=== PATIENT | female | born 1960 | race Caucasian/White ===

== ENCOUNTER 2018-06-25 14:54 | Outpatient (CLI) | payer OTHER | END 2018-06-25 14:55 | disposition home or self-care (01) | LOC: BICMAMMO 14:54 | PROVIDERS: ATTEND Obstetrics & Gynecology | DX: Z12.31 Encounter for screening mammogram for malignant neoplasm of breast (principal); R92.1 Mammographic calcification found on diagnostic imaging of breast | CPT/HCPCS: 77063; 77067 ==

== ENCOUNTER 2018-06-27 13:27 | Outpatient (CLI) | payer OTHER ==
--- NOTE | 2018-06-27 14:55 | ULT ---
LEFT BREAST ULTRASOUND: Comparison: Mammogram 06-27-18, 06-25-18, 04-17-17 History: Mass seen in the central aspect of the left breast which persists with additional imaging. Technique: Multiplanar grayscale and color doppler images were obtained in a targeted ultrasound of t he left breast. FINDINGS: In the central left breast there is a hypoechoic lobulated/spiculated mass measuring 1.[address]. This corresponds to the mammographic abnormality. This mass is difficult to see as it i s beneath the nipple but can be best seen from the 9 o'clock position. IMPRESSION: BIRADS category 4 - suspicious abnormality. Ultrasound guided biopsy of the left breast mass is recom mended. This was discussed with the patient at time of ultrasound. The nurse navigator, Rula Mcmanus, will coordinate with the patient and Dr. Johnson to schedule a biopsy of this mass. POS: [facility]
== END 2018-06-27 13:28 | disposition home or self-care (01) ==
LOC: BICMAMMO 13:27
PROVIDERS: ATTEND Obstetrics & Gynecology
DX: R92.8 Other abnormal and inconclusive findings on diagnostic imaging of breast (principal); N63.24 Unspecified lump in the left breast, lower inner quadrant
CPT/HCPCS: G0279

== ENCOUNTER 2018-07-04 08:05 | Outpatient (CLI) | payer OTHER ==
--- NOTE | 2018-07-04 11:55 | MRI ---
MRI RIGHT HIP WITHOUT CONTRAST: INDICATIONS: Chronic right hip pain. COMPARISON: None. FINDINGS: There is mild tendinosis of the right gluteus minimus tendon with mild subgluteus minimus trochanteri c bursitis. No muscular atrophy is evident. The rectus femoris and hamstring origins appear within normal limits. No iliopsoas bursitis is evident. No acute fracture is noted. No paralabral cyst is demonstrated. No free fluid or lymphadenopathy is evident within the pelvis. IMPRESSION: 1. Mild tendinosis of the right gluteus minimus with mild trochanteric bursitis. 2. No acute fracture demonstrated. 3. No large paralabral cysts to suggest the presence of an underlying labral tear. No joint effusio n demonstrated. 4. No muscular atrophy is evident. 5. No acute fracture is demonstrated. POS: [facility]
--- NOTE | 2018-07-04 12:21 | MRI ---
MRI LUMBAR SPINE WITHOUT CONTRAST: Date: 07/04/18 HISTORY: Right-sided sciatica. Chronic right hip pain. Low back pain with radiation to right leg. COMPARISON: None. TECHNIQUE: MRI lumbar spine is performed without intravenous Gadolinium administration. Multisequential, multipl meg imaging is performed. FINDINGS: Appropriate T1 marrow signal intensity of the lumbar vertebra. Vertebral body height is maintained. N o fracture. No significant STIR hyperintensity to suggest vertebral body edema or ligamentous injury. Symmetric signal intensity of the psoas muscles. Appropriate signal intensity of the solid organs. Co nus medullaris terminates at the upper aspect of L1. T12-L1: Adequate disc hydration. No significant central canal stenosis or foraminal narrowing. L1-L2: Adequate disc hydration. No significant central canal stenosis. Neural foramina are patent. L2-L3: Adequate disc hydration. No significant central canal stenosis. Neural foramina are patent. L3-L4: Adequate disc hydration. No significant central canal stenosis. Neural foramina are patent. T here is mild facet hypertrophy and ligamentum flavum thickening. L4-L5: Desiccation with mild loss of disc space height. There is a central disc protrusion with associated T 2 and STIR hyperintensity suggesting a small annular fissure. No significant stenosis upon the thecal sac. Annular fissure abuts, but does not obscure the traversing left L5 nerve root. Minimal bilatera l foraminal narrowing. There is mild facet hypertrophy and ligamentum flavum thickening. L5-S1: Adequate disc hydration. No significant central canal stenosis. Foramina are patent. IMPRESSION: 1. Annular fissure at L4-L5. There is associated minimal disc protrusion without significant stenosi s upon the thecal sac. The annular tear is adjacent to the traversing right L5 nerve root. POS: [facility]
== END 2018-07-04 08:06 | disposition home or self-care (01) ==
LOC: BICMRI 08:05
PROVIDERS: ATTEND Orthopaedic Surgery
DX: M54.32 Sciatica, left side (principal); M25.551 Pain in right hip; G89.29 Other chronic pain; M51.26 Other intervertebral disc displacement, lumbar region; M51.36 Other intervertebral disc degeneration, lumbar region; M70.61 Trochanteric bursitis, right hip
CPT/HCPCS: 72148

== ENCOUNTER → 2018-07-06 | Day surgery (SDC) | payer OTHER ==
--- NOTE | 2018-07-06 14:44 | ULT ---
ULTRASOUND GUIDED LEFT BREAST BIOPSY: Date: 07/06/18 HISTORY: Left breast mass. COMPARISON: None. FINDINGS: Successful left breast biopsy with ultrasound guidance. A total of four 14 gauge core biopsy samples were obtained and placed directly in Formalin. Post biopsy clip was placed and a postprocedure mammog marielle was performed which shows the clip adjacent to the lesion. TECHNIQUE: Consent obtained to perform an ultrasound guided biopsy of a left breast mass. Mass was identified an d the skin was prepped and draped in the sterile fashion. Under ultrasound guidance, four biopsies we re performed using a 14 gauge needle. Samples were placed directly in Formalin. A biopsy clip was khadijah bobby. The patient tolerated the procedure well. No immediate or postprocedure complications. Postprocedure mammogram was performed. IMPRESSION: Successful left breast ultrasound guided biopsy. Final pathologic diagnosis pending. Clip position ap propriate, just adjacent to the lesion. POS: [facility]
== END ==
LOC: BICULT 12:34
PROVIDERS: ATTEND Obstetrics & Gynecology
PROC: 0HBU3ZX Excision of Left Breast, Percutaneous Approach, Diagnostic (ICD-10-PCS; principal; 2018-07-06)
DX: C50.812 Malignant neoplasm of overlapping sites of left female breast (principal)
CPT/HCPCS: 19083; 88305

== ENCOUNTER 2018-11-21 09:46 | Outpatient (CLI) | payer OTHER ==
--- NOTE | 2018-11-21 11:48 | BD ---
DEXA BONE DENSITY EXAM: HISTORY: A 58-year-old postmenopausal female for screening. COMPARISON: None. FINDINGS: LUMBAR SPINE BMD (g/cm2) T-SCORE L1 1.020 0.3 L2 1.103 0.7 L3 1.041 -0.4 L4 0.954 -1.0 TOTAL L1-L4 1.028 -0.2 LEFT FEMORAL NECK 0.743 -1.0 TOTAL PROXIMAL LEFT FEMUR 0.913 -0.2 IMPRESSION: Normal bone mineral density. POS: [facility]
== END 2018-11-21 09:47 | disposition home or self-care (01) ==
LOC: BICMAMMO 09:46
PROVIDERS: ATTEND Internal Medicine Hematology & Oncology
DX: M85.80 Other specified disorders of bone density and structure, unspecified site (principal); C50.212 Malignant neoplasm of upper-inner quadrant of left female breast
CPT/HCPCS: 77080

== ENCOUNTER 2019-06-26 08:19 | Outpatient (CLI) | payer OTHER ==
--- NOTE | 2019-06-26 08:49 | MMO ---
Bilateral MAMMO Bilat Diag [facility]. CLINICAL HISTORY: Patient is 59 years old and is seen for diagnostic exam. The patient has no family history of breast cancer. The patient has a history of malignant (generic) in the left breast in June,. The patient has a history of left Ultrasound Guided Core Biopsy in June, - malignant and left Lumpectomy in July, - malignant. VIEWS: The views performed were: bilateral craniocaudal with tomosynthesis; bilateral mediolateral oblique with tomosynthesis; and bilateral mediolateral with tomosynthesis. FILMS COMPARED: The present examination has been compared to prior imaging studies performed at [facility] on 04/13/2016, 04/17/2017, 06/25/2018 and 06/27/2018. This study has been interpreted with the assistance of computer-aided detection. MAMMOGRAM FINDINGS: There are scattered fibroglandular densities. Finding 1: There are new post operative changes seen in the left breast. Finding 2: There are benign appearing calcifications seen in both breasts. There are no suspicious masses, suspicious calcifications, or suspicious areas of architectural distortion. IMPRESSION: THERE IS NO MAMMOGRAPHIC EVIDENCE OF MALIGNANCY. A ROUTINE FOLLOW-UP MAMMOGRAM IN 1 YEAR IS RECOMMENDED. THE RESULTS OF THIS EXAM WERE SENT TO THE PATIENT. ACR BI-RADS Category 2 - Benign finding MAMMOGRAPHY NOTE: 1. A negative mammogram report should not delay a biopsy if a dominant of clinically suspicious mass is present. 2. Approximately 10% to 15% of breast cancers are not detected by mammography. 3. Adenosis and dense breasts may obscure an underlying neoplasm. Reported by: CORRIE FREIRE MD Electonically Signed: [id number]
== END 2019-06-26 08:20 | disposition home or self-care (01) ==
LOC: BICMAMMO 08:19
PROVIDERS: ATTEND Internal Medicine Hematology & Oncology
DX: C50.212 Malignant neoplasm of upper-inner quadrant of left female breast (principal)
CPT/HCPCS: 77066; G0279

== ENCOUNTER 2019-11-25 08:42 | Outpatient (CLI) | payer OTHER ==
--- NOTE | 2019-11-25 09:25 | BD ---
DEXA BONE DENSITY STUDY: Date: 11/25/2019 HISTORY: Menopausal and perimenopausal disorder. FINDINGS: Lumbar Spine: BMD (g/cm2) L1 1.021 T-Score: +0.3 L2 1.091 T-Score: +0.6 L3 1.096 T-Score: +0.1 L4 0.950 T-Score: -1.0 L1-L4 1.032 T-Score: -0.1 Within normal limits with no increased risk for fracture. Stable from 11/21/2018. Left Hip: Femoral Neck: 0.773 T-Score: -0.7 Total Femur: 0.802 T-Score: -1.1 Evidence for osteopenia with increased risk for fracture. Bone mineral density has decreased approximately 12% when compared to the prior 11/21/2018 study. FRAX SCORE: Major osteoporotic fracture: 7.1% Hip fracture: 0.3% POS: [facility]
== END 2019-11-25 08:43 | disposition home or self-care (01) ==
LOC: BICMAMMO 08:42
PROVIDERS: ATTEND Internal Medicine Hematology & Oncology
DX: Z13.820 Encounter for screening for osteoporosis (principal); M85.859 Other specified disorders of bone density and structure, unspecified thigh; Z78.0 Asymptomatic menopausal state
CPT/HCPCS: 77080

== ENCOUNTER 2020-06-29 13:55 | Outpatient (CLI) | payer OTHER ==
--- NOTE | 2020-06-29 14:29 | MMO ---
Bilateral MAMMO Bilat Diag [facility]. CLINICAL HISTORY: Patient is 60 years old and is seen for diagnostic exam. The patient has no family history of breast cancer. The patient has a history of malignant (generic) in the left breast in June,. The patient has a history of left Lumpectomy in July, - malignant and left Ultrasound Guided Core Biopsy in June, - malignant. VIEWS: The views performed were: bilateral craniocaudal with tomosynthesis; bilateral mediolateral oblique with tomosynthesis; and bilateral mediolateral with tomosynthesis. FILMS COMPARED: The present examination has been compared to prior imaging studies performed at [facility] on 04/17/2017, 06/25/2018, 06/27/2018 and 06/26/2019. This study has been interpreted with the assistance of computer-aided detection. MAMMOGRAM FINDINGS: There are scattered fibroglandular densities. There are benign appearing calcifications seen in both breasts. Post op changes left breast are stable. There are no suspicious masses, suspicious calcifications, or new areas of architectural distortion. IMPRESSION: THERE IS NO MAMMOGRAPHIC EVIDENCE OF MALIGNANCY. A ROUTINE FOLLOW-UP MAMMOGRAM IN 1 YEAR IS RECOMMENDED. THE RESULTS OF THIS EXAM WERE SENT TO THE PATIENT. ACR BI-RADS Category 2 - Benign finding MAMMOGRAPHY NOTE: 1. A negative mammogram report should not delay a biopsy if a dominant of clinically suspicious mass is present. 2. Approximately 10% to 15% of breast cancers are not detected by mammography. 3. Adenosis and dense breasts may obscure an underlying neoplasm. Reported by: MARTIR PEDROZA MD Electonically Signed: [id number]
== END 2020-06-29 13:56 | disposition home or self-care (01) ==
LOC: BICMAMMO 13:55
PROVIDERS: ATTEND Internal Medicine Hematology & Oncology
DX: C50.919 Malignant neoplasm of unspecified site of unspecified female breast (principal)
CPT/HCPCS: 77066; G0279

== ENCOUNTER 2020-12-02 08:26 | Outpatient (CLI) | payer BC | END 2020-12-02 08:27 | disposition home or self-care (01) | LOC: BICMAMMO 08:26 | PROVIDERS: ATTEND Internal Medicine Hematology & Oncology | DX: M80.052A Age-related osteoporosis with current pathological fracture, left femur, initial encounter for fracture (principal); T38.6X5A Adverse effect of antigonadotrophins, antiestrogens, antiandrogens, not elsewhere classified, initial encounter | CPT/HCPCS: 77080 ==

== ENCOUNTER 2021-07-01 10:16 | Outpatient (CLI) | payer BC | END 2021-07-01 10:17 | disposition home or self-care (01) | LOC: BICMAMMO 10:16 | PROVIDERS: ATTEND Surgery | DX: Z08 Encounter for follow-up examination after completed treatment for malignant neoplasm (principal); Z85.3 Personal history of malignant neoplasm of breast | CPT/HCPCS: 77066; G0279 ==

== ENCOUNTER 2022-10-12 10:15 | Outpatient (CLI) | payer BC | END 2022-10-12 10:16 | disposition home or self-care (01) | LOC: BICMAMMO 10:15 | PROVIDERS: ATTEND Internal Medicine Hematology & Oncology | DX: Z13.820 Encounter for screening for osteoporosis (principal); C50.212 Malignant neoplasm of upper-inner quadrant of left female breast; M85.89 Other specified disorders of bone density and structure, multiple sites | CPT/HCPCS: 77080 ==

== ENCOUNTER 2023-07-10 13:20 | Outpatient (CLI) | payer MEDICARE | END 2023-07-10 13:21 | disposition home or self-care (01) | LOC: BICMAMMO 13:20 | PROVIDERS: ATTEND Internal Medicine Hematology & Oncology | DX: Z08 Encounter for follow-up examination after completed treatment for malignant neoplasm (principal); Z85.3 Personal history of malignant neoplasm of breast | CPT/HCPCS: 77066; G0279 ==

== ENCOUNTER 2024-05-16 14:35 | Outpatient (CLI) | payer MEDICARE | END 2024-05-16 14:36 | disposition home or self-care (01) | LOC: BICRAD 14:35 | PROVIDERS: ATTEND Family Medicine | DX: M25.572 Pain in left ankle and joints of left foot (principal); M94.8X7 Other specified disorders of cartilage, ankle and foot ==

== ENCOUNTER 2024-07-11 13:09 | Outpatient (CLI) | payer MEDICARE | END 2024-07-11 13:10 | disposition home or self-care (01) | LOC: BICMAMMO 13:09 | PROVIDERS: ATTEND Surgery | DX: Z08 Encounter for follow-up examination after completed treatment for malignant neoplasm (principal); Z85.3 Personal history of malignant neoplasm of breast | CPT/HCPCS: 77066; G0279 ==

== ENCOUNTER 2025-08-11 13:38 | Outpatient (CLI) | payer MEDICARE | END 2025-08-11 13:39 | disposition home or self-care (01) | LOC: BICMAMMO 13:38 | PROVIDERS: ATTEND Surgery | DX: Z12.31 Encounter for screening mammogram for malignant neoplasm of breast (principal); Z85.3 Personal history of malignant neoplasm of breast; Z98.890 Other specified postprocedural states | CPT/HCPCS: 77063; 77067 ==